=== PATIENT | female | born 1955 | race Caucasian/White ===

== ENCOUNTER 2024-10-28 15:35 | Emergency (ER) | payer MEDICARE, OTHER ==
[~2024-10-28] VITALS: Ht 157.5 cm; Wt 56.3 kg
[2024-10-28 16:40] LABS: PLATELET COUNT, AUTOMATED 404 10^3/uL (150-450)
[2024-10-28] MEDS ORDERED: GABA-1172 PO (17:02)
[2024-10-28] MEDS ORDERED: LEVO25TA5 PO (17:02)
[2024-10-28] MEDS ORDERED: ATOR1TAB21 PO (17:02)
[2024-10-28] MEDS ORDERED: DILT120C89 PO (17:02)
[2024-10-28] MEDS ORDERED: LEVE500T5 PO (17:02)
[2024-10-28] MEDS ORDERED: MONT10TA97 PO (17:03)
[2024-10-28] MEDS ORDERED: FURO20TA2 PO (17:03)
[2024-10-28] MEDS ORDERED: HOME MED LIST COMPLETE! XX SCH (17:05)
[2024-10-28] MEDS ORDERED: MED REC COMMENT (17:05)
[2024-10-28 17:13] LABS: ALT/SGPT 16 U/L (7.0-40); AST/SGOT 12 U/L (<34); CALCIUM LEVEL 8.5 MG/DL (8.3-10.6); CARBON DIOXIDE LEVEL 38 MMOL/L (20-31); CHLORIDE LEVEL 101 MMOL/L (98-107); CREATININE FOR GFR 0.65 MG/DL (0.55-1.30); GLOMERULAR FILTRATION RATE > 90.0 (>45); POTASSIUM SERUM 3.8 MMOL/L (3.5-5.1); SALICYLATE LEVEL < 3.0 MG/DL (<30); SODIUM LEVEL 144 MMOL/L (136-145)
[2024-10-28 17:15] LABS: ETHYL ALCOHOL (ETHANOL) < 0.003 % (0.000-0.010)
[2024-10-28 19:34] LABS: AMPHETAMINES LEVEL URINE NEGATIVE (NEGATIVE); BARBITURATES URINE NEGATIVE (NEGATIVE); BENZODIAZEPINES URINE NEGATIVE (NEGATIVE); CANNABINOIDS URINE NEGATIVE (NEGATIVE); COCAINE METABOLITE URINE NEGATIVE (NEGATIVE); METHADONE URINE NEGATIVE (NEGATIVE); OPIATES URINE NEGATIVE (NEGATIVE); PHENCYCLIDINE URINE NEGATIVE (NEGATIVE)
[2024-10-28] MEDS ORDERED: IBUPROFEN 400 MG TAB PO PRN (20:20)
[2024-10-28] MEDS ORDERED: MAALOX 30 ML SUSP *UDC PO PRN (20:20)
[2024-10-28] MEDS ORDERED: traZODone 50 MG TAB PO PRN (20:20)
[2024-10-28] MEDS ORDERED: ACETAMINOPHEN 325 MG TAB PO PRN (20:20)
[2024-10-28] MEDS ORDERED: MOM 30 ML SUSPENSION UDC PO PRN (20:20)
[2024-10-28] MEDS: GABAPENTIN 300 MG CAP PO SCH (21:10)
[2024-10-29] MEDS: LEVOTHYROXINE 25 MCG TABLET (0.025MG) PO SCH (06:50)
[2024-10-29 09:16] VITALS: BP 120/61
[2024-10-29] MEDS: MONTELUKAST 10 MG TAB PO SCH (09:16)
[2024-10-29] MEDS: ATORVASTATIN 20 MG TAB PO SCH (09:16)
[2024-10-29] MEDS: FUROSEMIDE 20 MG TAB PO SCH (09:16)
[2024-10-29] MEDS: dilTIAZem 120 MG **CD** CAPSULE PO SCH (09:16)
[2024-10-29 10:35] VITALS: O2SAT 95
[2024-10-29 15:05] VITALS: BP 126/54; TEMP 98.4; O2SAT 98
== END 2024-10-29 15:20 | disposition home or self-care (01) ==
LOC: EDBD 15:35 → M ED 15:35 → M ED INP 20:17 → UNDOADMIN 20:17 → UNDODISIN 10-29 15:10
DX: F43.23 Adjustment disorder with mixed anxiety and depressed mood (principal); F32.A Depression, unspecified; R45.851 Suicidal ideations; C34.90 Malignant neoplasm of unspecified part of unspecified bronchus or lung; G40.909 Epilepsy, unspecified, not intractable, without status epilepticus; J44.9 Chronic obstructive pulmonary disease, unspecified; D64.9 Anemia, unspecified; E78.00 Pure hypercholesterolemia, unspecified; E03.9 Hypothyroidism, unspecified; G47.33 Obstructive sleep apnea (adult) (pediatric); I25.10 Atherosclerotic heart disease of native coronary artery without angina pectoris; I73.9 Peripheral vascular disease, unspecified; I50.9 Heart failure, unspecified; Z88.0 Allergy status to penicillin; Z88.5 Allergy status to narcotic agent; Z88.8 Allergy status to other drugs, medicaments and biological substances; Z91.018 Allergy to other foods